=== PATIENT | female | born 2000 | race Caucasian/White ===

== ENCOUNTER 2023-03-20 16:45 | Emergency (ER) | payer MEDICAID ==
[~2023-03-20] VITALS: Ht 157.5 cm; Wt 66.0 kg
[2023-03-20 17:20] LABS: Urine Bacteria NONE SEEN /hpf (None Seen); Urine Blood Negative /uL (Negative); Urine Clarity Clear (Clear); Urine Color Yellow (Yellow); Urine Mucus FEW (None Seen); Urine Protein, UAD TRACE (Negative); Urine Specific Gravity 1.033 (1.001-1.035); Urine WBC 10 /hpf (0 - 5); Urine pH 5.5 (5.0-8.0)
[2023-03-20] MEDS ORDERED: METR-344 PO (22:02)
[2023-03-20] MEDS ORDERED: IBUP1TAB5 PO (22:02)
[2023-03-20] MEDS ORDERED: DOXY-346 PO (22:02)
[2023-03-20 22:25] VITALS: BP 118/69; PULSE 84; RESP 18; TEMP 98; O2SAT 99
[2023-03-21 16:06] LABS: Chlamydia Trachomatis, NAA Negative (Negative); Neisseria gonorrhoeae, NAA Negative (Negative)
== END 2023-03-20 22:32 | disposition home or self-care (01) ==
LOC: ER 16:45
DX: N76.0 Acute vaginitis (principal); N39.0 Urinary tract infection, site not specified; A64 Unspecified sexually transmitted disease; Z32.02 Encounter for pregnancy test, result negative; Z88.0 Allergy status to penicillin
CPT/HCPCS: 76830; 76856; 81001; 81025